=== PATIENT | male | born 1995 | race Caucasian/White ===

== ENCOUNTER 2018-09-05 23:07 | Inpatient (IN) | payer SELFPAY ==
[2018-09-06 00:09] LABS: ALT (SGPT) 22 U/L (8-55); AST (SGOT) 15 U/L (5-34); Albumin 4.3 g/dL (3.5-5.0); Alkaline Phosphatase 87 U/L (40-150); Anion Gap 12 mmol/L (10-20); BUN (Urea Nitrogen) 17 mg/dL (8.9-20.6); Bilirubin, Total 0.7 mg/dL (0.2-1.2); Calc. Creatinine Clearance 0 mL/min (70-130); Calcium 9.6 mg/dL (7.8-10.44); Carbon Dioxide 29 mmol/L (22-29); Chloride 103 mmol/L (98-107); Estimated GFR-MDRD 66; Glucose 103 mg/dL (70-105); Potassium 3.9 mmol/L (3.5-5.1); Protein, Total 7.3 g/dL (6.0-8.3); Sodium 140 mmol/L (136-145)
[2018-09-06 00:34] LABS: Band 1 % (5-11); Eosinophils 2 % (0-10); Hemoglobin 15.3 g/dL (14.0-18.0); Lymphocytes 61 % (21-51); MDiff Complete? YES; Mean Corpuscular HGB CONC 35.4 g/dL (32.0-36.0); Mean Corpuscular Hemoglobin 30.2 pg (27.0-31.0); Mean Corpuscular Volume 85.1 fL (78.0-98.0); Mean Platelet Volume 11.3 fL (7.4-10.4); Monocytes 15 % (0-10); Neutrophil 18 % (42-75); PLT Morphology Comment Appears Decreased; Platelet Count 35 thou/uL (130-400); RBC Distribution Width 12.1 % (11.5-14.5); Red Blood Cell (RBC) Count 5.07 mill/uL (4.70-6.10)
[2018-09-06 00:49] LABS: Bilirubin Negative (Negative); Blood, Urine Negative (Negative); Clarity CLEAR (Clear); Glucose, Urine (Dipstick) Negative (Negative); Leukocyte Negative (Negative); Nitrite Negative (Negative); Protein, Urine (Dipstick) Negative (Neg-Trace); Specific Gravity, Urine 1.017 (1.002-1.036); pH, Urine 6.5 (5.0-9.0)
[2018-09-06] MEDS ORDERED: Morphine 4 MG/ML VIAL ONE (01:13)
[2018-09-06] MEDS ORDERED: Ondansetron PF 4 MG/2 ML Vial ONE ×2 (01:13→12:34)
[2018-09-06] MEDS ORDERED: Piperacillin/Tazobactam 4.5 GM VIAL ONE (04:01)
[2018-09-06] MEDS ORDERED: Sodium Chloride 0.9% 100 ML ONE (04:01)
[2018-09-06 04:56] LABS: Hemoglobin 14.8 g/dL (14.0-18.0); Mean Corpuscular HGB CONC 36.6 g/dL (32.0-36.0); Mean Corpuscular Hemoglobin 31.3 pg (27.0-31.0); Mean Corpuscular Volume 85.6 fL (78.0-98.0); RBC Distribution Width 12.1 % (11.5-14.5); Red Blood Cell (RBC) Count 4.72 mill/uL (4.70-6.10); White Blood Cell (WBC) Count 1.8 thou/uL (4.8-10.8)
[2018-09-06 05:36] LABS: Band 8 % (5-11); Eosinophils 3 % (0-10); Large Platelets SLIGHT; Lymphocytes 57 % (21-51); MDiff Complete? YES; Mean Platelet Volume 11.3 fL (7.4-10.4); Monocytes 9 % (0-10); Neutrophil 16 % (42-75); PLT Morphology Comment Appears Decreased; Platelet Count 32 thou/uL (130-400); Reactive Lymphocytes 6 % (0-10)
[2018-09-06] MEDS ORDERED: Ondansetron ODT 4 MG TAB SL PRN (05:58)
[2018-09-06] MEDS ORDERED: Ondansetron PF 4 MG/2 ML Vial IVP PRN (05:58)
[2018-09-06] MEDS ORDERED: Morphine 4 MG/ML VIAL SLOW IVP PRN (05:59)
[2018-09-06] MEDS ORDERED: Lactated Ringer's 1,000 ML IV SCH (06:00)
[2018-09-06 06:38] VITALS: BMI 29.6
[2018-09-06] MEDS ORDERED: Piperacillin/Tazobactam 3.375 GM in Sodium Chloride 0.9% 100 ML IVPB SCH (12:00)
[2018-09-06] MEDS ORDERED: Bupivacaine/Epinephrine 0.25% 30 ML VIAL ONE (12:00)
[2018-09-06] MEDS ORDERED: Bupivacaine HCl 0.5%/Epinephrine 1:200,000/PF 30 ml Vial ONE (12:00)
--- NOTE | 2018-09-06 12:05 | HP ---
HISTORY OF PRESENT ILLNESS: Hitesh Hankins is a 23-year-old male, who works for the [employer]. He had an onset of pain in right lower quadrant yesterday, increased with movement without nausea, vomiting, or fevers. He presented to the emergency room. CAT scan verified appendicitis. White count was 1.8, hemoglobin 14.8, and platelet count was low at 35,000, this was repeated and it was 32,000. On 09/14/2014, platelet count was 187,000. The patient reports that there has been no medications or health problems known associated to this. He has not had any bleeding problems. He will often sustain small abrasions or lacerations, and has not noted prolonged bleeding. The patient did take azithromycin a month ago, small course, but otherwise he does not take any medications. ALLERGIES: NONE. SOCIAL HISTORY: Tobacco, none. Alcohol, none. MEDICATIONS: None. PAST SURGICAL HISTORY: Noncontributory. PAST MEDICAL HISTORY: Noncontributory. REVIEW OF SYSTEMS: Ten-point noncontributory. FAMILY HISTORY: Noncontributory. PHYSICAL EXAMINATION: VITAL SIGNS: Height 5 feet and 8 inches, weight 195 pounds, 29 BMI. LUNGS: Clear to auscultation. CARDIAC: Regular rate and rhythm without murmur or gallop. ABDOMEN: Soft. Tenderness in his right lower quadrant. Guarding to deep palpation. EXTREMITIES: Unremarkable. LABORATORY DATA: As above. ASSESSMENT AND PLAN: 1. Acute appendicitis. Recommend laparoscopic video appendectomy. Risks of infection, bleeding, visceral injury, and open procedure discussed. 2. Thrombocytopenia. Dr. Elida Weldon has been consulted. Platelet pack will be administered perioperatively. Await Dr. Weldon's workup. Job ID: [id number]
[2018-09-06] MEDS ORDERED: methylPREDNISolone Sod Succ/PF 125 MG/2 ML VIAL ONE ×2 (12:13→12:38)
[2018-09-06] MEDS ORDERED: Hydrocortisone Sod Succ/PF 100 mg/2 ml Vial ONE (12:32)
[2018-09-06] MEDS ORDERED: Succinylcholine Chloride 20 MG/ML 10 ml SYRINGE FS ONE (12:34)
[2018-09-06] MEDS ORDERED: Ketorolac Tromethamine 30 MG/ML VIAL ONE (12:34)
[2018-09-06] MEDS ORDERED: PROPOFOL 200 MG/20 ML VIAL ONE (12:34)
[2018-09-06] MEDS ORDERED: Lidocaine 1% PF 5 ML VIAL ONE (12:34)
--- NOTE | 2018-09-06 12:35 | CT ---
PRELIMINARY REPORT/[facility]/EMERGENCY AFTER HOURS PROCEDURE: EXAM: CT Abdomen and Pelvis With Contrast EXAM DATE/TIME: 09/06/2018 2:47 AM CLINICAL HISTORY: 23 years old, male; Pain; Abdominal pain; Generalized; Patient HX: 23m presents to ed C/O abd pain lo calized to the r side, which he noticed this morning after he woke up. Patient reports drinking energ y drinks and soda more than usual, but otherwise can't think of any reason for the intractable pain . Patient says using the restroom relieves pain temporarily. TECHNIQUE: Axial computed tomography images of the abdomen and pelvis with intravenous contrast. Coronal reforma tted images were created and reviewed. COMPARISON: No relevant prior studies available. FINDINGS: Lower thorax: No acute findings. ABDOMEN: Liver: Unremarkable. No mass. Gallbladder and bile ducts: Unremarkable. No calcified stones. No ductal dilation. Pancreas: Unremarkable. No ductal dilation. Spleen: The spleen is mildly enlarged. Adrenals: Unremarkable. No mass. Kidneys and ureters: No calculi. No hydronephrosis. Stomach and bowel: Duodenal diverticulum. Moderate stool within the distal large bowel. No obstructio n. Colonic diverticula most pronounced at the proximal large bowel. No discrete focally inflamed dive rticulum. Appendix: The appendix is mildly enlarged and minimally hyperemic measuring up to 10 mm in diameter. Infiltration of the surrounding fat. PELVIS: Bladder: Unremarkable as visualized. Reproductive: Unremarkable as visualized. ABDOMEN and PELVIS: Intraperitoneal space: No free air. No significant fluid collection. Bones/joints: No acute fracture. No dislocation. Soft tissues: Tiny fat containing umbilical hernia. Vasculature: Unremarkable. No abdominal aortic aneurysm. Lymph nodes: Enlarged left inguinal lymph nodes measuring up to 1.9 cm in short axis in left pelvic s idewall lymph node measuring up to 1.3 cm in short axis. IMPRESSION: 1. Findings suggestive of early acute appendicitis. Minimal surrounding inflammation. No discrete flu id collection or extraluminal gas foci. 2. Mild splenomegaly. Left external iliac and inguinal lymphadenopathy. The possibility of underlying malignancy is not excluded. 3. Other findings as above. THIS REPORT CONTAINS FINDINGS THAT MAY BE CRITICAL TO PATIENT CARE. The findings were verbally commun icated via telephone conference with FRANCI HOFFMAN at 3:14 AM [employer] on 09/06/2018. The findings were a cknowledged and understood. Thank you for allowing us to participate in the care of your patient. Dictated and Authenticated by: Ernie Grant MD 09/06/2018 3:18 AM Central Time ([place] & [place]) FINAL REPORT EMERGENT AFTER HOURS CT ABDOMEN AND PELVIS: IMPRESSION: Agree with the preliminary interpretation given by [facility]. POS: [facility]
[2018-09-06] MEDS ORDERED: Midazolam HCl 2 mg/2 ml Vial ONE (12:53)
[2018-09-06] MEDS ORDERED: Fentanyl 100 MCG/2 ML VIAL ONE ×2 (12:53→13:58)
[2018-09-06] MEDS ORDERED: Piperacillin/Tazobactam 3.375 GM VIAL ONE (12:53)
[2018-09-06] MEDS ORDERED: Iopamidol 370 76% 100 ML VIAL ONE (13:39)
[2018-09-06] MEDS ORDERED: Iopamidol 370 76% 50 ML VIAL FS ONE (13:39)
[2018-09-06] MEDS ORDERED: Promethazine HCl 25 MG/ML VIAL SLOW IVP PRN (13:49)
[2018-09-06] MEDS ORDERED: Ondansetron HCl/PF 4 MG/2 ML Vial IVP PRN (13:49)
[2018-09-06] MEDS ORDERED: Promethazine HCl 25 MG/ML VIAL IM PRN (13:49)
[2018-09-06] MEDS ORDERED: Ibuprofen 600 MG TAB PO PRN (14:17)
[2018-09-06] MEDS ORDERED: Acetaminophen 500 MG TAB PO PRN (14:17)
[2018-09-06] MEDS ORDERED: traMADol HCl 50 MG TAB PO PRN ×2 (14:17)
[2018-09-06 18:15] LABS: #Lymphocytes 0.4 thou/uL (1.20-3.40); #Monocytes 0.1 thou/uL (0.11-0.59); #Neutrophils 2.2 thou/uL (1.40-6.50); %Basophils 0.8 % (0.0-1.0); %Eosinophils 0.6 % (0.0-10.0); %Lymphocytes 12.9 % (21.0-51.0); %Neutrophils 81.7 % (42.0-75.0); Hemoglobin 14.8 g/dL (14.0-18.0); Mean Corpuscular HGB CONC 35.4 g/dL (32.0-36.0); Mean Corpuscular Hemoglobin 30.4 pg (27.0-31.0); Mean Platelet Volume 10.3 fL (7.4-10.4); Platelet Count 51 thou/uL (130-400); RBC Distribution Width 12.2 % (11.5-14.5); Red Blood Cell (RBC) Count 4.86 mill/uL (4.70-6.10); White Blood Cell (WBC) Count 2.7 thou/uL (4.8-10.8)
--- NOTE | 2018-09-06 19:36 | OP ---
DATE OF PROCEDURE: 09/06/2018 PREOPERATIVE DIAGNOSES: 1. Acute appendicitis. 2. Thrombocytopenia. POSTOPERATIVE DIAGNOSES: 1. Acute appendicitis. 2. Thrombocytopenia. PROCEDURES PERFORMED: Laparoscopic video appendectomy, preoperatively given Solu-Medrol dose, platelet pack, and antibiotics. ANESTHESIA: General, local 0.5% Marcaine with epinephrine. FINDINGS: Acute appendicitis. DESCRIPTION OF PROCEDURE: The patient was taken to the operating room, where under general anesthesia, Iglesias catheter was placed at the beginning of the procedure and removed at the end. Local anesthetic of 0.5% Marcaine with epinephrine was infiltrated in the skin and subcutaneous tissue at each port site. Infraumbilical incision was made. Pneumoperitoneum to 15 mmHg was obtained with a Veress needle, replaced with a 5 port, and the laparoscope inserted. A right lateral subcostal incision was made and a 5 port placed. A suprapubic incision was made and a 12 port placed. Appendix was acutely inflamed. Mesoappendix was taken down with the LigaSure. The stump of the appendix ligated with Endo blue load stapler. The stapled cecal stump was essentially hemostatic with clips placed for perfect hemostasis. Good hemostasis was noted. Irrigant and pneumoperitoneum evacuated. Appendix was submitted to Pathology. Suprapubic fascia was approximated with 0 Vicryl. Skin incisions were approximated with interrupted subdermal 4-0 Monocryl and [place] glue applied. Job ID: [id number]
[2018-09-07 03:42] VITALS: BP 106/63; TEMP 98.1
[2018-09-07 06:52] LABS: Hemoglobin 14.3 g/dL (14.0-18.0); Mean Corpuscular HGB CONC 35.8 g/dL (32.0-36.0); Mean Corpuscular Hemoglobin 30.8 pg (27.0-31.0); Mean Corpuscular Volume 86.1 fL (78.0-98.0); Mean Platelet Volume 9.9 fL (7.4-10.4); Platelet Count 71 thou/uL (130-400); Red Blood Cell (RBC) Count 4.66 mill/uL (4.70-6.10); White Blood Cell (WBC) Count 2.7 thou/uL (4.8-10.8)
[2018-09-07 07:30] LABS: Band 21 % (5-11); Eosinophils 1 % (0-10); Lymphocytes 26 % (21-51); MDiff Complete? YES; Monocytes 1 % (0-10); Neutrophil 37 % (42-75); PLT Morphology Comment Appears Decreased; Reactive Lymphocytes 14 % (0-10)
[2018-09-07 07:41] LABS: Band 23 % (5-11); Eosinophils 1 % (0-10); Hemoglobin 14.5 g/dL (14.0-18.0); Lymphocytes 21 % (21-51); MDiff Complete? YES; Mean Corpuscular HGB CONC 34.5 g/dL (32.0-36.0); Mean Corpuscular Hemoglobin 29.6 pg (27.0-31.0); Mean Corpuscular Volume 85.9 fL (78.0-98.0); Mean Platelet Volume 10.2 fL (7.4-10.4); Monocytes 1 % (0-10); Neutrophil 35 % (42-75); PLT Morphology Comment Appears Decreased; Platelet Count 78 thou/uL (130-400); Reactive Lymphocytes 19 % (0-10); Red Blood Cell (RBC) Count 4.91 mill/uL (4.70-6.10)
--- NOTE | 2018-09-07 14:14 | CON ---
DATE OF CONSULTATION: 09/07/2018 HISTORY OF PRESENT ILLNESS: Mr. Hankins is a 23-year-old male, who presented yesterday with appendicitis. He had acute onset abdominal pain and was evaluated quickly by Surgery. At the time of admission, he was noted to be leukopenic and thrombocytopenic. The patient denies any history of this in the past. He has normal CBC from few years ago. His platelet count was low at 35,000 and it was repeated at 32,000. He denies any recent fever or chills besides the 24 hours prior to hospitalization when he had nausea and vomiting and acute onset of fever associated with the appendicitis. He did take some high-dose antibiotics for an STD about 3 weeks ago, but has not noticed any bleeding or bruising. He denies nosebleeds or blood in his stool or urine. He has not had any easy bruising. He denies any other recent infections. His is currently in labor and is supposed to deliver baby within 24 hours. He is quite interested in being discharged, so that he can go and spent time with his . PAST MEDICAL HISTORY: Negative. CURRENT MEDICATIONS: 1. Tylenol p.r.n. 2. Motrin p.r.n. 3. Ultram p.r.n. ALLERGIES: NO KNOWN DRUG ALLERGIES. 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 He denies anything other than occasional alcohol use. He denies tobacco use. FAMILY HISTORY: Negative for hematology. REVIEW OF SYSTEMS: Otherwise, 10-point review of systems is negative with the exception of abdominal pain, which is resolving and he is ambulating without incident today. PHYSICAL EXAMINATION: VITAL SIGNS: Temperature 98.1, respirations 18, pulse 71, O2 saturation 96% on room air, blood pressure 106/63. GENERAL: He is up walking around the room, in no acute distress. HEENT: Extraocular muscles are intact. Pupils are equal, round, and reactive to light. He has no oral cavity lesions. NECK: Supple without lymphadenopathy. CARDIOVASCULAR: Regular rhythm. LUNGS: Clear to auscultation. ABDOMEN: Hypoactive bowel sounds. Soft and somewhat tender postoperatively. EXTREMITIES: No edema and no ecchymosis. LABORATORY DATA: White blood cell count on admission 2.0 repeated today 3.0, hemoglobin 15.3 now 14.5, platelets 35,000, he did get transfusion and now they are up to 78,000, neutrophils 18%, bands 1%, monocytes 15%, lymphocytes 61% on admission. His differential 24 hours later is 35% neutrophils, 23% bands, 21% lymphocytes, and 19% reactive lymphocytes. ASSESSMENT: Mr. Hankins is a 23-year-old male with: 1. Leukopenia and thrombocytopenia, improving and asymptomatic. 2. Appendicitis, status post appendectomy. PLAN: 1. We will review the peripheral smear. 2. His numbers are improving and he would like to be discharged. He seems clinically stable and we can follow up with him within 3 to 4 days as an outpatient with the repeat CBC. 3. Further workup may be warranted as an outpatient. Job ID: [id number]
--- NOTE | 2018-09-09 15:02 | EKG ---
Test Reason : Blood Pressure : / mmHG Vent. Rate : 070 BPM Atrial Rate : 070 BPM P-R Int : 120 ms QRS Dur : 114 ms QT Int : 424 ms P-R-T Axes : 049 035 048 degrees QTc Int : 457 ms Normal sinus rhythm Normal ECG Confirmed by FRANCI INTERIANO M.D. ([id number]), online editor DYLAN BARNETT ([id number]) on 09/09/2018 3:01:59 PM Referred By: Confirmed By:FRANCI INTERIANO M.D.
== END 2018-09-07 08:35 | disposition home or self-care (01) | DRG 343 ==
LOC: ERS 23:07 → SURG A 09-06 04:20
PROVIDERS: ADMIT Specialist; ATTEND Specialist
PROC: 0DTJ4ZZ Resection of Appendix, Percutaneous Endoscopic Approach (ICD-10-PCS; principal; 2018-09-06)
DX: K35.80 Unspecified acute appendicitis (principal); D69.6 Thrombocytopenia, unspecified
CPT/HCPCS: 36415; 36430; 74177; 80053; 81003; 83690; 85025; 86850; 86870; 86900; 86901; 88304; 93005; 96361; 96365; 96375; J0670; J1720; J1885; J2001; J2250; J2270; J2405; J2543; J2704; J2930; J3010; J7050; P9035

== ENCOUNTER 2018-10-20 08:41 | Day surgery (SDC) | payer OTHER, SELFPAY ==
[2018-10-19 11:57] VITALS: BMI 30.1
[~2018-10-20 08:41] MED LIST: Prevnar 13-Val Conj/PF 0.5 ML SYRINGE IM ONE
[2018-10-20 09:04] LABS: INR-International Normal Ratio 1.1; PTT 29.5 SEC (22.9-36.1); Prothrombin Time 14.1 SEC (12.0-14.7)
[2018-10-20 09:13] LABS: Hemoglobin 15.4 g/dL (14.0-18.0); Mean Corpuscular Hemoglobin 30.1 pg (27.0-31.0); Mean Platelet Volume 11.6 fL (7.4-10.4); Platelet Count 22 thou/uL (130-400); Red Blood Cell (RBC) Count 5.12 mill/uL (4.70-6.10); White Blood Cell (WBC) Count 1.8 thou/uL (4.8-10.8)
[2018-10-20 09:52] LABS: Band 3 % (5-11); Eosinophils 2 % (0-10); Lymphocytes 54 % (21-51); MDiff Complete? YES; Monocytes 13 % (0-10); Neutrophil 23 % (42-75); Platelet Morphology Comment Appears Decreased; RBC Morphology Normal; Reactive Lymphocytes 5 % (0-10)
[2018-10-20] MEDS ORDERED: Fentanyl 100 MCG/2 ML VIAL ONE ×2 (10:15→10:16)
[2018-10-20] MEDS ORDERED: Sodium Bicarbonate 2.5 MEQ/5 ML VIAL ONE (10:17)
[2018-10-20] MEDS ORDERED: Midazolam HCl 2 mg/2 ml Vial ONE (10:17)
--- NOTE | 2018-10-20 12:53 | CT ---
RIGHT ILIAC BONE MARROW ASPIRATION AND BONE BIOPSY: HISTORY: Patient with thrombocytopenia, D69.49. FINDINGS: The patient's low platelet count was discussed with Dr. Weldon prior to exam. This benefit analysis would suggest that in order to obtain a diagnosis it is worse possible risk of bleeding in performin g this procedure. The right iliac crest was localized using CT guidance. The overlying skin was prepped and draped in the usual sterile manner. A % Lidocaine solution was used to anesthetize the overlying the soft tiss ues. A Jamshidi needle was placed into the right iliac crest. Bone marrow aspiration was obtained. The specimen was sent to pathology. A core biopsy was attempted. No significant amount of bone returned. A 2nd bone marrow biopsy was, therefore, performed. Specimen given to pathology. IMPRESSION: Successful right iliac bone marrow aspiration and core biopsy. Post procedure no definite significan t evidence of hematoma seen. CODE CR POS: [facility]
== END 2018-10-20 12:15 | disposition home or self-care (01) ==
LOC: CT 08:41
PROVIDERS: ATTEND Radiology Neuroradiology
PROC: 07DR3ZX Extraction of Iliac Bone Marrow, Percutaneous Approach, Diagnostic (ICD-10-PCS; principal; 2018-10-20)
DX: D69.6 Thrombocytopenia, unspecified (principal); Z87.891 Personal history of nicotine dependence; Z90.49 Acquired absence of other specified parts of digestive tract
CPT/HCPCS: 20225; 36415; 77012; 85025; 85097; 85610; 85730; 88184; 88237; 88305; 88311; 88313; J2250; J3010

== ENCOUNTER 2019-02-15 10:23 | Emergency (ER) | payer OTHER, SELFPAY | END 2019-02-15 11:53 | disposition home or self-care (01) | LOC: ERS 10:23 | DX: J06.9 Acute upper respiratory infection, unspecified (principal); F17.290 Nicotine dependence, other tobacco product, uncomplicated | CPT/HCPCS: 99283 ==

== ENCOUNTER 2019-08-05 12:17 | Emergency (ER) | payer SELFPAY ==
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
[2019-08-05 14:35] LABS: Hemoglobin 12.3 g/dL (14.0-18.0); Mean Corpuscular HGB CONC 35.1 g/dL (32.0-36.0); Mean Corpuscular Hemoglobin 30.4 pg (27.0-31.0); Mean Corpuscular Volume 86.8 fL (78.0-98.0); Mean Platelet Volume 9.5 fL (7.4-10.4); Platelet Count 85 thou/uL (130-400); RBC Distribution Width 12.4 % (11.5-14.5); Red Blood Cell (RBC) Count 4.04 mill/uL (4.70-6.10); White Blood Cell (WBC) Count 1.2 thou/uL (4.8-10.8)
[2019-08-05 15:00] LABS: ALT (SGPT) 16 U/L (8-55); AST (SGOT) 15 U/L (5-34); Albumin 4.6 g/dL (3.5-5.0); Alkaline Phosphatase 69 U/L (40-110); Anion Gap 13 mmol/L (10-20); BUN (Urea Nitrogen) 14 mg/dL (8.9-20.6); Calc. Creatinine Clearance 0 mL/min (70-130); Calcium 9.7 mg/dL (7.8-10.44); Carbon Dioxide 27 mmol/L (22-29); Chloride 104 mmol/L (98-107); Estimated GFR-MDRD 64; Globulin 2.8 g/dL (2.4-3.5); Glucose 86 mg/dL (70-105); Potassium 3.9 mmol/L (3.5-5.1); Protein, Total 7.4 g/dL (6.0-8.3); Sodium 140 mmol/L (136-145)
[2019-08-05 15:05] LABS: Band 9 % (5-11); Eosinophils 4 % (0-10); Lymphocytes 50 % (21-51); MDiff Complete? YES; Metamyelocyte 2 % (0-0); Monocytes 20 % (0-10); Myelocyte 2 % (0-0); Neutrophil 5 % (42-75); Ovalocytes SLIGHT = 2-5 cells (100X) (0-1/hpf); Platelet Morphology Comment Appears Decreased; Polychromasia MODERATE = 3-4 cells (100X) (0-2/hpf); Reactive Lymphocytes 9 % (0-10); Reflex for Review?? YES; Tear Drops SLIGHT = 2-5 cells (100X) (0-1/hpf)
[2019-08-05] MEDS ORDERED: diphenhydrAMINE 50 MG/ML VIAL ONE (16:00)
[2019-08-05] MEDS ORDERED: Ketorolac Tromethamine 30 MG/ML VIAL ONE (16:00)
[2019-08-05] MEDS ORDERED: Acetaminophen 500 MG TAB ONE (16:00)
[2019-08-05] MEDS ORDERED: Metoclopramide HCl 10 MG/2 ML VIAL ONE (16:00)
== END 2019-08-05 17:04 | disposition home or self-care (01) ==
LOC: ERS 12:17
DX: D69.6 Thrombocytopenia, unspecified (principal); R55 Syncope and collapse; F17.290 Nicotine dependence, other tobacco product, uncomplicated
CPT/HCPCS: 71045; 80053; 84484; 85025; 85060; 93005; 96361; 96365; 96375; J1200; J1885; J2765

== ENCOUNTER 2019-09-14 16:28 | Inpatient (IN) | payer OTHER, SELFPAY ==
[~2019-09-14 16:28] MED LIST changes: +Dexamethasone 20 MG/5 ML VIAL ONE; +Iopamidol-370 76% 500 ML 1 ML ONE; +Lidocaine 1% PF 5 ML VIAL ONE; +Ondansetron PF 4 MG/2 ML Vial ONE; +PHENYLEPHRINE-NS 100 MCG/ML 10 ML SYRINGE ONE; +PROPOFOL 200 MG/20 ML VIAL ONE; -Prevnar 13-Val Conj/PF 0.5 ML SYRINGE IM ONE; +Succinylcholine Chloride 20 MG/ML 10 ml SYRINGE FS ONE
[2019-09-14] MEDS ORDERED: Fentanyl 100 MCG/2 ML VIAL ONE ×5 (16:33→21:48)
[2019-09-14] MEDS ORDERED: Ondansetron PF 4 MG/2 ML Vial ONE (16:33)
[2019-09-14] MEDS ORDERED: HYDROmorphone 0.5 MG/0.5 ML SYRINGE ONE ×2 (16:39→16:51)
[2019-09-14] MEDS ORDERED: Adacel (T-DAP) 0.5 ML SYRINGE ONE ×2 (16:40→16:46)
[2019-09-14] MEDS ORDERED: Hydrocortisone Sod Succ/PF 100 mg/2 ml Vial ONE (16:48)
[2019-09-14 17:08] LABS: #Eosinphils 0.1 thou/uL (0.0-0.7); #Monocytes 0.4 thou/uL (0.11-0.59); #Neutrophils 9.4 thou/uL (1.40-6.50); %Eosinophils 0.5 % (0.0-10.0); %Lymphocytes 9.3 % (21.0-51.0); %Neutrophils 86.2 % (42.0-75.0); Hemoglobin 15.6 g/dL (14.0-18.0); Mean Corpuscular HGB CONC 34.9 g/dL (32.0-36.0); Mean Corpuscular Hemoglobin 31.1 pg (27.0-31.0); Mean Corpuscular Volume 89.2 fL (78.0-98.0); Mean Platelet Volume 10.3 fL (7.4-10.4); Platelet Count 104 thou/uL (130-400); RBC Distribution Width 12.9 % (11.5-14.5); Red Blood Cell (RBC) Count 5.02 mill/uL (4.70-6.10); White Blood Cell (WBC) Count 10.9 thou/uL (4.8-10.8)
[2019-09-14 17:14] LABS: Prothrombin Time 13.5 SEC (12.0-14.7)
[2019-09-14 17:18] LABS: PTT 19.7 SEC (22.9-36.1)
[2019-09-14 17:20] LABS: Bacteria/HPF None Seen HPF (None Seen); Bilirubin Negative (Negative); Blood, Urine 1+ (Negative); Clarity Clear (Clear); Glucose, Urine (Dipstick) 50 mg/dL (Negative); Leukocyte Negative Leu/uL (Negative); Nitrite Negative (Negative); Protein, Urine (Dipstick) Negative (Neg-Trace); RBC/HPF 21-50 HPF (0-3); Squamous Epithelial None Seen HPF (0-3); Urobilinogen Normal mg/dL (Less than 2); WBC/HPF 0-3 HPF (0-3)
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
--- NOTE | 2019-09-14 17:33 | CT ---
CT head without contrast: Multiple axial tomograms obtained through the head without IV enhancement. INDICATIONS: Headache COMPARISON: None FINDINGS: Ventricles have normal size and position. No evidence of intracranial mass, hemorrhage, edema, or infarct. Visualized sinuses and mastoids appear clear. Bony calvarium appears unremarkable. IMPRESSION: No acute finding
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
[2019-09-14 17:41] LABS: ALT (SGPT) 34 U/L (8-55); AST (SGOT) 28 U/L (5-34); Albumin 4.4 g/dL (3.5-5.0); Alkaline Phosphatase 58 U/L (40-110); Anion Gap 20 mmol/L (10-20); BUN (Urea Nitrogen) 19 mg/dL (8.9-20.6); Bilirubin, Total 1.1 mg/dL (0.2-1.2); Calc. Creatinine Clearance 0 mL/min (70-130); Calcium 9.4 mg/dL (7.8-10.44); Carbon Dioxide 22 mmol/L (22-29); Chloride 103 mmol/L (98-107); Estimated GFR-MDRD 64; Globulin 2.4 g/dL (2.4-3.5); Glucose 153 mg/dL (70-105); Lipase 38 U/L (8-78); Potassium 4.4 mmol/L (3.5-5.1); Protein, Total 6.8 g/dL (6.0-8.3); Sodium 141 mmol/L (136-145)
[2019-09-14] MEDS ORDERED: Ondansetron ODT 4 MG TAB PO PRN (17:51)
[2019-09-14] MEDS ORDERED: Dextrose 5% in Water 1,000 ML IV PRN (17:51)
[2019-09-14] MEDS ORDERED: Morphine 4 MG/ML VIAL SLOW IVP PRN (17:51)
[2019-09-14] MEDS ORDERED: Ondansetron PF 4 MG/2 ML Vial IVP PRN (17:51)
[2019-09-14] MEDS ORDERED: hydrALAZINE 20 MG/ML VIAL SLOW IVP PRN (17:51)
[2019-09-14] MEDS ORDERED: Dextrose 50% Abboject 50 ML SYRINGE SLOW IVP PRN (17:51)
[2019-09-14] MEDS ORDERED: Neomycin-Polymyxin 1 ML AMP ONE (18:16)
[2019-09-14] MEDS ORDERED: Ibuprofen 600 MG TAB PO SCH (18:30)
[2019-09-14] MEDS ORDERED: traMADol HCl 50 MG TAB PO SCH (18:30)
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
[2019-09-14] MEDS ORDERED: HYDROmorphone 2 MG/ML VIAL ONE (19:34)
[2019-09-14 19:58] LABS: Amphetamine Not Detected (NotDetected); Benzodiazepine Screen Not Detected (NotDetected); Cocaine Metabolite Screen Not Detected (NotDetected); Medtox Reader # READER 1; Methamphetamine Not Detected (NotDetected); Opiate Screen Not Detected (NotDetected); Phencyclidine (PCP) Not Detected (NotDetected); THC/Cannabinoid Screen Not Detected (NotDetected)
[2019-09-14 19:59] LABS: Barbiturates Screen Not Detected (NotDetected); Medtox Control Line Valid? VALID (VALID); Methadone Not Detected (NotDetected); Oxycodone Screen Not Detected (NotDetected); Tricyclic Screen Not Detected (NotDetected)
[2019-09-14] MEDS ORDERED: Albumin 25% 100 ML ONE (20:04)
[2019-09-14] MEDS ORDERED: Albumin 5% 500 ML ONE (20:04)
[2019-09-14] MEDS ORDERED: Morphine Sulfate 2 MG/ML SYRINGE SLOW IVP PRN (20:53)
[2019-09-14] MEDS ORDERED: Ondansetron HCl/PF 4 MG/2 ML Vial IVP PRN (20:53)
[2019-09-14] MEDS ORDERED: Promethazine HCl 25 MG/ML VIAL SLOW IVP PRN (20:53)
[2019-09-14] MEDS ORDERED: HYDROmorphone 2 MG/ML VIAL SLOW IVP PRN (20:53)
[2019-09-14] MEDS ORDERED: Promethazine HCl 25 MG/ML VIAL IM PRN (20:53)
[2019-09-14] MEDS ORDERED: Ketorolac Tromethamine 30 MG/ML VIAL IVP PRN (20:53)
[2019-09-14] MEDS ORDERED: PACU-Morphine 4MG/ML VIAL SLOW IVP PRN (20:53)
[2019-09-14] MEDS ORDERED: Meperidine HCl/PF 25 MG/ML VIAL SLOW IVP PRN ×2 (20:53)
[2019-09-14] MEDS: Famotidine/PF 20 mg/2ml Vial SLOW IVP SCH (22:30)
[2019-09-14] MEDS: Gabapentin 300 MG CAP PO SCH (22:30)
[2019-09-14] MEDS: Sodium Chloride 0.9% 1,000 ML IV SCH (22:31)
[2019-09-14] MEDS: CEFAZOLIN 2 GM in Premix Bag 1 BAG IVPB SCH (22:38)
[2019-09-14] MEDS: Silver Sulfadiazine 1% Cream 50 GM JAR TOP SCH (22:45)
[2019-09-14] MEDS: Morphine 4 MG/ML VIAL SLOW IVP PRN (23:15)
[2019-09-14] MEDS: Acetaminophen 1,000 MG in Premix Bag 1 BAG IVPB SCH (23:16)
[2019-09-14 23:39] LABS: Lactic Acid 2.8 mmol/L (0.5-2.2)
[2019-09-15 00:52] VITALS: BMI 34.9
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
[2019-09-15] MEDS: Morphine 4 MG/ML VIAL SLOW IVP PRN (02:14)
[2019-09-15] MEDS: Sodium Chloride 0.9% 1,000 ML IV SCH (02:15)
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
[2019-09-15 05:00] LABS: #Lymphocytes 0.4 thou/uL (1.20-3.40); #Neutrophils 7.7 thou/uL (1.40-6.50); %Basophils 0.2 % (0.0-1.0); %Eosinophils 0.1 % (0.0-10.0); %Lymphocytes 4.9 % (21.0-51.0); %Monocytes 10.7 % (0.0-10.0); %Neutrophils 84.2 % (42.0-75.0); Hemoglobin 10.6 g/dL (14.0-18.0); Mean Corpuscular HGB CONC 35.3 g/dL (32.0-36.0); Mean Corpuscular Hemoglobin 31.5 pg (27.0-31.0); Mean Corpuscular Volume 89.3 fL (78.0-98.0); Mean Platelet Volume 9.6 fL (7.4-10.4); Platelet Count 76 thou/uL (130-400); RBC Distribution Width 12.8 % (11.5-14.5); Red Blood Cell (RBC) Count 3.35 mill/uL (4.70-6.10); White Blood Cell (WBC) Count 9.1 thou/uL (4.8-10.8)
[2019-09-15 05:16] LABS: Anion Gap 15 mmol/L (10-20); BUN (Urea Nitrogen) 20 mg/dL (8.9-20.6); Calc. Creatinine Clearance 140 mL/min (70-130); Calcium 9.3 mg/dL (7.8-10.44); Carbon Dioxide 25 mmol/L (22-29); Chloride 102 mmol/L (98-107); Estimated GFR-MDRD 74; Glucose 150 mg/dL (70-105); Magnesium 1.9 mg/dL (1.6-2.6); Potassium 4.6 mmol/L (3.5-5.1); Sodium 137 mmol/L (136-145)
[2019-09-15 05:17] LABS: CK (CPK) 600 U/L (30-200); Phosphorus 5.2 mg/dL (2.3-4.7)
[2019-09-15] MEDS: traMADol HCl 50 MG TAB PO SCH ×4 (05:20→23:42)
[2019-09-15] MEDS: Acetaminophen 1,000 MG in Premix Bag 1 BAG IVPB SCH (05:21)
[2019-09-15] MEDS: CEFAZOLIN 2 GM in Premix Bag 1 BAG IVPB SCH ×3 (05:24→21:00)
--- NOTE | 2019-09-15 07:36 | RAD ---
XR Tib Fib Lt Leg 2 View History: ORIF Comparison: Leg radiograph same day Findings: 4 fluoroscopic images were obtained from the operating room. Impression: Fluoroscopy for surgical purposes. Pin placement likely for an external fixator.
[2019-09-15 08:19] LABS: Hemoglobin A1c 4.4 % (4.0-6.0)
[2019-09-15] MEDS ORDERED: Dextrose 50% Abboject 50 ML SYRINGE IVP PRN (08:26)
[2019-09-15] MEDS ORDERED: Dextrose 5% in Water 1,000 ML IV PRN (08:26)
[2019-09-15] MEDS ORDERED: HumaLOG 300 UNITS/3 ML VIAL SC PRN (08:26)
[2019-09-15] MEDS: Scopolamine 1.5 mg/72 hour Patch TD SCH (08:28)
[2019-09-15] MEDS: Gabapentin 300 MG CAP PO SCH ×3 (08:29→21:00)
[2019-09-15] MEDS: predniSONE 20 MG TAB PO SCH (08:29)
[2019-09-15] MEDS: Famotidine/PF 20 mg/2ml Vial SLOW IVP SCH (08:29)
[2019-09-15] MEDS: Polyethylene Glycol 3350 17 GM Packet PO SCH (08:30)
[2019-09-15] MEDS: Silver Sulfadiazine 1% Cream 50 GM JAR TOP SCH ×2 (08:30→21:00)
[2019-09-15] MEDS ORDERED: Acetaminophen 500 MG TAB PO PRN (08:59)
[2019-09-15] MEDS ORDERED: FLU VACC QS2019-20(6MOS UP)/PF 60 MCG/0.5 ML SYRINGE IM ONE (09:00)
[2019-09-15] MEDS ORDERED: Enoxaparin Sodium 40 MG/0.4 ML SYRINGE SC SCH (09:00)
[2019-09-15] MEDS: Cyclobenzaprine 10 MG TAB PO PRN (09:58)
[2019-09-15] MEDS: Acetaminophen 500 MG TAB PO SCH ×2 (18:03→23:42)
[2019-09-15 18:15] LABS: #Lymphocytes 0.6 thou/uL (1.20-3.40); #Monocytes 0.7 thou/uL (0.11-0.59); #Neutrophils 6.8 thou/uL (1.40-6.50); %Basophils 0.1 % (0.0-1.0); %Eosinophils 0.3 % (0.0-10.0); %Lymphocytes 6.8 % (21.0-51.0); %Monocytes 9.1 % (0.0-10.0); %Neutrophils 83.8 % (42.0-75.0); Hemoglobin 10.7 g/dL (14.0-18.0); Mean Corpuscular HGB CONC 35.4 g/dL (32.0-36.0); Mean Corpuscular Hemoglobin 31.9 pg (27.0-31.0); Mean Platelet Volume 9.9 fL (7.4-10.4); Platelet Count 97 thou/uL (130-400); RBC Distribution Width 12.9 % (11.5-14.5); Red Blood Cell (RBC) Count 3.36 mill/uL (4.70-6.10); White Blood Cell (WBC) Count 8.1 thou/uL (4.8-10.8)
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
[2019-09-16 00:14] LABS: #Lymphocytes 0.8 thou/uL (1.20-3.40); #Monocytes 0.6 thou/uL (0.11-0.59); #Neutrophils 4.4 thou/uL (1.40-6.50); %Basophils 0.1 % (0.0-1.0); %Eosinophils 0.5 % (0.0-10.0); %Lymphocytes 13.7 % (21.0-51.0); %Monocytes 9.7 % (0.0-10.0); %Neutrophils 76.1 % (42.0-75.0); Hemoglobin 9.9 g/dL (14.0-18.0); Mean Corpuscular HGB CONC 35.3 g/dL (32.0-36.0); Mean Corpuscular Hemoglobin 31.8 pg (27.0-31.0); Mean Corpuscular Volume 90.2 fL (78.0-98.0); Mean Platelet Volume 9.1 fL (7.4-10.4); Platelet Count 88 thou/uL (130-400); RBC Distribution Width 12.9 % (11.5-14.5); Red Blood Cell (RBC) Count 3.11 mill/uL (4.70-6.10); White Blood Cell (WBC) Count 5.8 thou/uL (4.8-10.8)
[2019-09-16 00:21] LABS: INR-International Normal Ratio 1.1; Prothrombin Time 13.9 SEC (12.0-14.7)
[2019-09-16 00:36] LABS: Anion Gap 14 mmol/L (10-20); BUN (Urea Nitrogen) 20 mg/dL (8.9-20.6); Calc. Creatinine Clearance 132 mL/min (70-130); Calcium 8.5 mg/dL (7.8-10.44); Carbon Dioxide 25 mmol/L (22-29); Chloride 104 mmol/L (98-107); Estimated GFR-MDRD 70; Glucose 222 mg/dL (70-105); Phosphorus 3.1 mg/dL (2.3-4.7); Potassium 3.7 mmol/L (3.5-5.1); Sodium 139 mmol/L (136-145)
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
[2019-09-16] MEDS: Cyclobenzaprine 10 MG TAB PO PRN ×2 (03:56→23:30)
[2019-09-16] MEDS ORDERED: Morphine 4 MG/ML VIAL SLOW IVP SCH (04:30)
[2019-09-16] MEDS: traMADol HCl 50 MG TAB PO SCH ×4 (05:24→23:29)
[2019-09-16] MEDS: CEFAZOLIN 2 GM in Premix Bag 1 BAG IVPB SCH ×3 (05:25→21:18)
[2019-09-16] MEDS: Acetaminophen 500 MG TAB PO SCH ×4 (05:25→23:29)
[2019-09-16] MEDS ORDERED: CEFAZOLIN 2 GM in Premix Bag 1 BAG IVPB SCH (07:45)
[2019-09-16] MEDS: predniSONE 20 MG TAB PO SCH (08:30)
[2019-09-16] MEDS: Gabapentin 300 MG CAP PO SCH ×3 (08:30→21:18)
[2019-09-16] MEDS: Polyethylene Glycol 3350 17 GM Packet PO SCH (08:31)
[2019-09-16] MEDS: Silver Sulfadiazine 1% Cream 50 GM JAR TOP SCH ×2 (08:31→21:19)
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
[2019-09-16 17:30] LABS: Hemoglobin 10.8 g/dL (14.0-18.0)
[2019-09-16] MEDS: Enoxaparin Sodium 40 MG/0.4 ML SYRINGE SC SCH (21:18)
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
[2019-09-17] MEDS: Acetaminophen 500 MG TAB PO SCH ×3 (05:20→18:13)
[2019-09-17] MEDS: traMADol HCl 50 MG TAB PO SCH ×3 (05:21→18:09)
[2019-09-17 06:02] LABS: Phosphorus 3.9 mg/dL (2.3-4.7)
[2019-09-17 06:04] LABS: Anion Gap 10 mmol/L (10-20); BUN (Urea Nitrogen) 21 mg/dL (8.9-20.6); Calc. Creatinine Clearance 179 mL/min (70-130); Calcium 9.1 mg/dL (7.8-10.44); Carbon Dioxide 31 mmol/L (22-29); Chloride 102 mmol/L (98-107); Estimated GFR-MDRD Greater than 90; Glucose 92 mg/dL (70-105); Magnesium 2.1 mg/dL (1.6-2.6); Sodium 139 mmol/L (136-145)
[2019-09-17 06:36] LABS: Mean Corpuscular HGB CONC 33.8 g/dL (32.0-36.0); Mean Corpuscular Hemoglobin 30.4 pg (27.0-31.0); Mean Corpuscular Volume 89.8 fL (78.0-98.0); Mean Platelet Volume 9.7 fL (7.4-10.4); Platelet Count 70 thou/uL (130-400); RBC Distribution Width 13.5 % (11.5-14.5); Red Blood Cell (RBC) Count 3.31 mill/uL (4.70-6.10); White Blood Cell (WBC) Count 4.4 thou/uL (4.8-10.8)
[2019-09-17] MEDS: Cyclobenzaprine 10 MG TAB PO PRN ×2 (07:48→19:25)
[2019-09-17 08:29] LABS: Band 10 % (5-11); Eosinophils 2 % (0-10); Lymphocytes 17 % (21-51); MDiff Complete? YES; Monocytes 16 % (0-10); Myelocyte 1 % (0-0); Neutrophil 53 % (42-75); Platelet Morphology Comment Appears Decreased; Polychromasia SLIGHT = 2-3 cells (100X) (0-2/hpf); Promyelocytes 1 % (0-0)
[2019-09-17] MEDS: Sodium Chloride 0.9% 1,000 ML IV SCH ×2 (09:29→18:09)
[2019-09-17] MEDS: Gabapentin 300 MG CAP PO SCH ×3 (09:30→19:25)
[2019-09-17] MEDS: predniSONE 20 MG TAB PO SCH (09:30)
[2019-09-17] MEDS: Polyethylene Glycol 3350 17 GM Packet PO SCH (09:32)
[2019-09-17] MEDS: Silver Sulfadiazine 1% Cream 50 GM JAR TOP SCH ×2 (09:32→19:40)
[2019-09-17] MEDS ORDERED: Ondansetron PF 4 MG/2 ML Vial ONE (09:48)
[2019-09-17] MEDS ORDERED: Lidocaine 1% PF 5 ML VIAL ONE (09:48)
[2019-09-17] MEDS ORDERED: PROPOFOL 200 MG/20 ML VIAL ONE (09:48)
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
[2019-09-17] MEDS ORDERED: Fentanyl 100 MCG/2 ML VIAL ONE ×4 (14:08→17:19)
[2019-09-17] MEDS ORDERED: Ondansetron HCl/PF 4 MG/2 ML Vial IVP PRN (15:05)
[2019-09-17] MEDS ORDERED: Promethazine HCl 25 MG/ML VIAL IM PRN (15:05)
[2019-09-17] MEDS ORDERED: Promethazine HCl 25 MG/ML VIAL SLOW IVP PRN (15:05)
[2019-09-17] MEDS ORDERED: Labetalol HCl 100 MG/20 ML VIAL ONE (17:04)
[2019-09-17] MEDS ORDERED: Morphine 4 MG/ML VIAL SLOW IVP PRN (18:22)
[2019-09-17] MEDS ORDERED: HYDROcodone/Acetaminophen 5/325 mg Tablet PO PRN ×3 (18:22→19:21)
[2019-09-17] MEDS: Enoxaparin Sodium 40 MG/0.4 ML SYRINGE SC SCH (20:30)
[2019-09-17] MEDS ORDERED: HYDROcodone/Acetaminophen 7.5/325 mg Tablet PO PRN (20:37)
[2019-09-17] MEDS ORDERED: Morphine 4 MG/ML VIAL SLOW IVP SCH (20:45)
[2019-09-17] MEDS ORDERED: Acetaminophen 325 MG TAB PO SCH (21:00)
--- NOTE | 2019-09-17 21:33 | RAD ---
LEFT TIBIA AND FIBULA TWO VIEWS: 09/17/19 HISTORY: Intraoperative films. These show intramedullary china placement related to fixation of a comminuted fracture of the mid shaft of the tibia. IMPRESSION: Placement of intramedullary china stabilizing tibial fracture. POS: AUBREE
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
[2019-09-18] MEDS: CEFAZOLIN 2 GM in Premix Bag 1 BAG IVPB SCH ×3 (02:36→15:29)
[2019-09-18] MEDS: Sodium Chloride 0.9% 1,000 ML IV SCH ×2 (02:36→08:28)
[2019-09-18] MEDS: Cyclobenzaprine 10 MG TAB PO PRN ×2 (02:36→13:39)
[2019-09-18] MEDS: Acetaminophen 325 MG TAB PO SCH ×4 (02:44→21:26)
[2019-09-18] MEDS: HYDROcodone/Acetaminophen 7.5/325 mg Tablet PO PRN (05:39)
[2019-09-18 05:47] LABS: Phosphorus 4.1 mg/dL (2.3-4.7)
[2019-09-18 05:49] LABS: Anion Gap 9 mmol/L (10-20); BUN (Urea Nitrogen) 22 mg/dL (8.9-20.6); Calc. Creatinine Clearance 138 mL/min (70-130); Calcium 8.7 mg/dL (7.8-10.44); Carbon Dioxide 34 mmol/L (22-29); Chloride 101 mmol/L (98-107); Estimated GFR-MDRD 73; Glucose 90 mg/dL (70-105); Magnesium 2.1 mg/dL (1.6-2.6); Potassium 4.3 mmol/L (3.5-5.1); Sodium 140 mmol/L (136-145)
[2019-09-18 06:21] LABS: Hemoglobin 9.2 g/dL (14.0-18.0); Mean Corpuscular HGB CONC 34.5 g/dL (32.0-36.0); Mean Corpuscular Hemoglobin 31.2 pg (27.0-31.0); Mean Corpuscular Volume 90.3 fL (78.0-98.0); Platelet Count 64 thou/uL (130-400); RBC Distribution Width 13.4 % (11.5-14.5); Red Blood Cell (RBC) Count 2.96 mill/uL (4.70-6.10); White Blood Cell (WBC) Count 2.8 thou/uL (4.8-10.8)
[2019-09-18 06:31] LABS: Band 14 % (5-11); Eosinophils 2 % (0-10); Lymphocytes 30 % (21-51); MDiff Complete? YES; Metamyelocyte 1 % (0-0); Monocytes 12 % (0-10); Myelocyte 3 % (0-0); Neutrophil 37 % (42-75); Platelet Morphology Comment Appears Decreased; Reactive Lymphocytes 1 % (0-10)
[2019-09-18] MEDS: Gabapentin 300 MG CAP PO SCH ×3 (08:17→21:27)
[2019-09-18] MEDS: Polyethylene Glycol 3350 17 GM Packet PO SCH (08:17)
[2019-09-18] MEDS: predniSONE 20 MG TAB PO SCH (08:17)
[2019-09-18] MEDS: Scopolamine 1.5 mg/72 hour Patch TD SCH (08:17)
[2019-09-18] MEDS: Silver Sulfadiazine 1% Cream 50 GM JAR TOP SCH ×2 (08:29→21:28)
[2019-09-18] MEDS ORDERED: Morphine 2 MG/ML SYRINGE SLOW IVP PRN (08:31)
[2019-09-18] MEDS ORDERED: Morphine 4 MG/ML VIAL SLOW IVP PRN (08:31)
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
[2019-09-18] MEDS: Morphine 4 MG/ML VIAL SLOW IVP PRN ×2 (18:08→23:35)
[2019-09-18] MEDS: Enoxaparin Sodium 40 MG/0.4 ML SYRINGE SC SCH (21:28)
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
[2019-09-19] MEDS: Acetaminophen 325 MG TAB PO SCH ×2 (03:46→08:14)
[2019-09-19] MEDS: HYDROcodone/Acetaminophen 7.5/325 mg Tablet PO PRN ×4 (03:47→20:49)
[2019-09-19 07:35] LABS: Band 13 % (5-11); Eosinophils 4 % (0-10); Lymphocytes 33 % (21-51); MDiff Complete? YES; Mean Corpuscular HGB CONC 34.6 g/dL (32.0-36.0); Mean Corpuscular Hemoglobin 31.1 pg (27.0-31.0); Mean Corpuscular Volume 89.9 fL (78.0-98.0); Mean Platelet Volume 9.7 fL (7.4-10.4); Monocytes 10 % (0-10); Myelocyte 11 % (0-0); Neutrophil 29 % (42-75); Nucleated RBC 1 % (0); Platelet Count 53 thou/uL (130-400); Platelet Morphology Comment Appears Decreased; RBC Distribution Width 13.4 % (11.5-14.5); Red Blood Cell (RBC) Count 2.89 mill/uL (4.70-6.10); White Blood Cell (WBC) Count 2.7 thou/uL (4.8-10.8)
[2019-09-19] MEDS: predniSONE 20 MG TAB PO SCH (08:13)
[2019-09-19] MEDS: Polyethylene Glycol 3350 17 GM Packet PO SCH (08:14)
[2019-09-19] MEDS: Gabapentin 300 MG CAP PO SCH ×2 (08:14→20:57)
[2019-09-19] MEDS: Silver Sulfadiazine 1% Cream 50 GM JAR TOP SCH ×2 (08:19→20:59)
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
[2019-09-19] MEDS: Cyclobenzaprine 10 MG TAB PO PRN (18:31)
[2019-09-19] MEDS: Enoxaparin Sodium 40 MG/0.4 ML SYRINGE SC SCH (20:58)
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
[2019-09-20] MEDS: HYDROcodone/Acetaminophen 7.5/325 mg Tablet PO PRN ×3 (03:29→18:58)
[2019-09-20] MEDS: predniSONE 20 MG TAB PO SCH (08:22)
[2019-09-20] MEDS: Silver Sulfadiazine 1% Cream 50 GM JAR TOP SCH (08:22)
[2019-09-20] MEDS: Polyethylene Glycol 3350 17 GM Packet PO SCH (08:22)
[2019-09-20] MEDS: Gabapentin 300 MG CAP PO SCH (08:22)
[2019-09-20] MEDS ORDERED: Morphine 4 MG/ML VIAL SLOW IVP SCH (11:15)
[2019-09-20 15:36] VITALS: BP 121/74; TEMP 98.1
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
--- NOTE | 2019-09-22 05:32 | PQF ---
[employer] Job Titles Crystal [employer] PATRICIA Guerra CHRISTOPHER E MD [id number] [place] [id number] CLINICAL DOCUMENTATION CLARIFICATION FORM: POST DISCHARGE Addendum to original discharge summary date: ____ Late entry note date: __ DATE: 09/22/2019 ATTN: ASHLEY CHAVEZ MD Please exercise your independent, professional judgment in responding to the clarification form. Clinical indicators are provided on the bottom of this form for your review Please check appropriate box(s): [ x ] Excisional Debridement: [ ] Excised [ ] Cut away [ ] Other: Depth / layer: (deepest layer of debridement): [ ] Skin[ ] SubQ Tissue [ ] Fascia [ x ] Muscle [ ] Tendon [ ] Bone Appearance of wound: (e.g., down to fresh bleeding tissue, etc.)___ Margins: (please specify): / x x Instruments used: [ ] Scissors [ ] Scalpel [ ] Curette [ ] Soft tissue clipper [ ] Other: [ ] Non-excisional Debridement: (Removal by flushing, brushing, chemical, or washing) Depth / layer: (deepest layer of debridement): [ ] Skin[ ] Subcutaneous [ ] Fascia [ ] Muscle [ ] Tendon [ ] Bone [ ] Other procedure diagnosis [ ] Unable to determine For continuity of documentation, please document condition throughout progress notes and discharge summary. Thank You. CLINICAL INDICATORS - SIGNS / SYMPTOMS / LABS he had extensive wound along posterior aspect of the knee transversely across the popliteal fossa - Documented in OP report We debrided subcutaneous tissue, fascia, Debrided down to the bony level - Documented in OP report There was muscle damaged as well - Documented in OP report We then Irrigated with approximately 8 L of pulse lavage using irrigant - Documented in OP report At this point we performed a final excision of debridement - Documented in OP report RISK FACTORS Open left grade2 tibia and fibular open fracture with extensive soft tissue wounds popliteal fossa - Documented in OP report TREATMENTS: We close the wound loosely with 3-0 and 2-0 nylon suture - Documented in OP report (This form is maintained as a part of the permanent medical record) 2014 [employer]. All Rights Reserved [email or web address] [not provided] MTDD
== END 2019-09-20 19:15 | disposition home or self-care (01) | DRG 493 ==
LOC: ERS 16:28 → SDC/OP 18:14 → SURG A 22:20
PROVIDERS: ADMIT Surgery; ATTEND Surgery
PROC: 0KBT0ZZ Excision of Left Lower Leg Muscle, Open Approach (ICD-10-PCS; principal; 2019-09-14)
PROC: 0QSK35Z Reposition Left Fibula with External Fixation Device, Percutaneous Approach (ICD-10-PCS; 2019-09-14)
PROC: 0QSH35Z Reposition Left Tibia with External Fixation Device, Percutaneous Approach (ICD-10-PCS; 2019-09-14)
PROC: 0QPHX5Z Removal of External Fixation Device from Left Tibia, External Approach (ICD-10-PCS; 2019-09-17)
PROC: 0QSH06Z Reposition Left Tibia with Intramedullary Internal Fixation Device, Open Approach (ICD-10-PCS; 2019-09-17)
DX: S82.252B Displaced comminuted fracture of shaft of left tibia, initial encounter for open fracture type I or II (principal); E87.2 Acidosis; D69.3 Immune thrombocytopenic purpura; D62 Acute posthemorrhagic anemia; T79.A22A Traumatic compartment syndrome of left lower extremity, initial encounter; S82.832B Other fracture of upper and lower end of left fibula, initial encounter for open fracture type I or II; Z79.899 Other long term (current) drug therapy; Z90.49 Acquired absence of other specified parts of digestive tract; I12.9 Hypertensive chronic kidney disease with stage 1 through stage 4 chronic kidney disease, or unspecified chronic kidney disease; N18.2 Chronic kidney disease, stage 2 (mild); V29.9XXA Motorcycle rider (driver) (passenger) injured in unspecified traffic accident, initial encounter; R73.9 Hyperglycemia, unspecified; T38.0X5A Adverse effect of glucocorticoids and synthetic analogues, initial encounter
CPT/HCPCS: 29505; 36415; 36430; 51702; 70450; 71045; 71260; 72125; 74177; 75635; 76000; 80048; 80053; 80306; 80307; 81003; 81015; 82550; 83036; 83605; 83690; 83735; 84100; 85025; 85610; 85730; 86850; 86860; 86870; 86880; 86900; 86901; 86905; 86922; 90471; 90686; 90715; 93005; 93010; 96374; 96375; C1713; C1769; G0008; G0390; J0131; J0690; J1100; J1170; J1650; J1720; J2001; J2270; J2405; J2704; J3010; J7512; P9016; P9045; P9047; Q9967; S0028

== ENCOUNTER 2019-11-18 08:39 | Day surgery (SDC) | payer OTHER ==
[~2019-11-18 08:39] MED LIST changes: +Acetaminophen 500 MG TAB PO SCH; -Dexamethasone 20 MG/5 ML VIAL ONE; -Iopamidol-370 76% 500 ML 1 ML ONE; -Lidocaine 1% PF 5 ML VIAL ONE; -Ondansetron PF 4 MG/2 ML Vial ONE; -PHENYLEPHRINE-NS 100 MCG/ML 10 ML SYRINGE ONE; -PROPOFOL 200 MG/20 ML VIAL ONE; +RITUXIMAB IVPB SCH; +Rituximab 100 MG in Sodium Chloride 0.9% 100 ML IVPB SCH; +Rituximab 500 MG, Rituximab 200 MG in Sodium Chloride 0.9% 500 ML IVPB SCH; +SODIUM CHLORIDE 0.9% IVPB SCH; -Succinylcholine Chloride 20 MG/ML 10 ml SYRINGE FS ONE; +diphenhydrAMINE 25 MG in Sodium Chloride 0.9% 50 ML IVPB SCH
[2019-11-18 15:26] VITALS: TEMP 98.5
[2019-11-18 15:44] VITALS: BP 122/59
== END 2019-11-18 15:46 | disposition home or self-care (01) ==
LOC: ONC/OP 08:39
PROVIDERS: ATTEND Internal Medicine Hematology & Oncology
DX: D69.3 Immune thrombocytopenic purpura (principal); D69.49 Other primary thrombocytopenia
CPT/HCPCS: 96375; 96413; 96415; J1200

== ENCOUNTER 2019-12-03 10:17 | Day surgery (SDC) | payer OTHER ==
[2019-12-03] MEDS ORDERED: diphenhydrAMINE 25 MG in Sodium Chloride 0.9% 50 ML IVPB SCH (10:45)
[2019-12-03] MEDS ORDERED: Acetaminophen 500 MG TAB PO SCH (10:45)
[2019-12-03] MEDS ORDERED: Rituximab 500 MG, Rituximab 200 MG in Sodium Chloride 0.9% 500 ML IVPB SCH (11:00)
[2019-12-03] MEDS ORDERED: Rituximab 100 MG in Sodium Chloride 0.9% 100 ML IVPB SCH (11:00)
[2019-12-03 16:54] VITALS: TEMP 98.5
[2019-12-03 16:57] VITALS: BP 137/81
== END 2019-12-03 16:56 | disposition home or self-care (01) ==
LOC: ONC/OP 10:17
PROVIDERS: ATTEND Internal Medicine Hematology & Oncology
DX: D69.49 Other primary thrombocytopenia (principal); D69.3 Immune thrombocytopenic purpura
CPT/HCPCS: 96375; 96413; 96415; J1200

== ENCOUNTER 2019-12-15 10:48 | Inpatient (IN) | payer OTHER ==
[2019-12-13 11:13] VITALS: BMI 36.3
[~2019-12-15 10:48] MED LIST changes: -Acetaminophen 500 MG TAB PO SCH; +Dexamethasone 20 MG/5 ML VIAL ONE; +Esmolol 100 MG/10 ML VIAL ONE; +Glycopyrrolate 0.2 MG/ML 5 ML SYRINGE ONE; +Lidocaine 1% PF 5 ML VIAL ONE; +Ondansetron PF 4 MG/2 ML Vial ONE; +PROPOFOL 200 MG/20 ML VIAL ONE; -RITUXIMAB IVPB SCH; -Rituximab 100 MG in Sodium Chloride 0.9% 100 ML IVPB SCH; -Rituximab 500 MG, Rituximab 200 MG in Sodium Chloride 0.9% 500 ML IVPB SCH; +Rocuronium Bromide 10 MG/ML (10ML VIAL) ONE; -SODIUM CHLORIDE 0.9% IVPB SCH; -diphenhydrAMINE 25 MG in Sodium Chloride 0.9% 50 ML IVPB SCH; +diphenhydrAMINE 50 MG/ML VIAL ONE
[2019-12-15] MEDS ORDERED: Fentanyl 100 MCG/2 ML VIAL ONE ×3 (12:59→15:37)
[2019-12-15] MEDS ORDERED: Midazolam HCl 2 mg/2 ml Vial ONE (13:00)
[2019-12-15] MEDS ORDERED: HYDROmorphone 2 MG/ML VIAL ONE (13:39)
[2019-12-15] MEDS ORDERED: HYDROcodone/Acetaminophen 10/325 mg Tablet PO PRN ×2 (14:40)
[2019-12-15] MEDS ORDERED: Ondansetron PF 4 MG/2 ML Vial IV PRN (14:40)
[2019-12-15] MEDS ORDERED: Morphine 2 MG/ML SYRINGE SLOW IVP PRN (14:40)
[2019-12-15] MEDS ORDERED: PHARMACY TO RENALLY ADJUST ABX FS SCH (14:45)
[2019-12-15] MEDS ORDERED: Meperidine HCl/PF 25 MG/ML VIAL SLOW IVP PRN (15:13)
[2019-12-15] MEDS ORDERED: HYDROmorphone 2 MG/ML VIAL SLOW IVP PRN (15:13)
[2019-12-15] MEDS ORDERED: Promethazine HCl 25 MG/ML VIAL SLOW IVP PRN (15:13)
[2019-12-15] MEDS ORDERED: Promethazine HCl 25 MG/ML VIAL IM PRN ×2 (15:13→19:42)
[2019-12-15] MEDS ORDERED: Ondansetron HCl/PF 4 MG/2 ML Vial IVP PRN (15:13)
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
--- NOTE | 2019-12-15 18:42 | RAD ---
LEFT TIBIA AND FIBULA: 12/15/19 Two fluoroscopic images are presented from OR. INDICATION: Intraoperative imaging during bone graft left tibia. FINDINGS/IMPRESSION: These images show an intramedullary china with comminuted fracture mid shaft. POS: AUBREE
[2019-12-15] MEDS ORDERED: traMADol HCl 50 MG TAB PO PRN (19:23)
[2019-12-15] MEDS ORDERED: fentaNYL Citrate/PF 2,000 MCG in Sodium Chloride 0.9% 60 ML IV PRN (19:42)
[2019-12-15] MEDS ORDERED: diphenhydrAMINE 50 MG/ML VIAL IM PRN (19:42)
[2019-12-15] MEDS ORDERED: diphenhydrAMINE 50 MG/ML VIAL IVP PRN (19:42)
[2019-12-15] MEDS ORDERED: Naloxone HCl 0.4 mg/ml Vial IV PRN (19:42)
[2019-12-15] MEDS ORDERED: Zolpidem Tartrate 5 MG TAB PO PRN (19:42)
[2019-12-15] MEDS ORDERED: Ondansetron PF 4 MG/2 ML Vial IVP PRN (19:42)
[2019-12-15] MEDS ORDERED: Communication Order-Pharmacy FS SCH (19:45)
[2019-12-15] MEDS: Aspirin 81 mg Enteric Coated Tablet PO SCH (20:29)
[2019-12-15] MEDS: CEFAZOLIN 2 GM in Premix Bag 1 BAG IVPB SCH (20:29)
[2019-12-15] MEDS: diphenhydrAMINE 25 MG CAP PO PRN (21:51)
[2019-12-15] MEDS: Ketorolac Tromethamine 30 MG/ML VIAL IVP SCH (23:24)
[2019-12-16] MEDS: CEFAZOLIN 2 GM in Premix Bag 1 BAG IVPB SCH ×3 (03:50→20:27)
[2019-12-16] MEDS: Ketorolac Tromethamine 30 MG/ML VIAL IVP SCH ×4 (05:01→23:35)
[2019-12-16 05:35] LABS: #Lymphocytes 0.7 thou/uL (1.20-3.40); #Neutrophils 7.3 thou/uL (1.40-6.50); %Basophils 0.3 % (0.0-1.0); %Eosinophils 0.2 % (0.0-10.0); %Lymphocytes 7.6 % (21.0-51.0); %Neutrophils 80.9 % (42.0-75.0); Hemoglobin 12.1 g/dL (14.0-18.0); Mean Corpuscular Hemoglobin 28.8 pg (27.0-31.0); Mean Corpuscular Volume 82.3 fL (78.0-98.0); Mean Platelet Volume 10.3 fL (7.4-10.4); Platelet Count 172 thou/uL (130-400); RBC Distribution Width 13.5 % (11.5-14.5); Red Blood Cell (RBC) Count 4.18 mill/uL (4.70-6.10); White Blood Cell (WBC) Count 9.1 thou/uL (4.8-10.8)
[2019-12-16] MEDS ORDERED: ALPRAZolam 0.5 MG TAB PO PRN ×2 (07:58→08:03)
[2019-12-16] MEDS: Aspirin 81 mg Enteric Coated Tablet PO SCH ×2 (10:28→20:27)
[2019-12-16] MEDS: diphenhydrAMINE 25 MG CAP PO PRN (12:11)
[2019-12-16] MEDS ORDERED: HYDROcodone/Acetaminophen 10/325 mg Tablet PO PRN (13:14)
[2019-12-16] MEDS ORDERED: traMADol HCl 50 MG TAB PO PRN (13:15)
[2019-12-16] MEDS ORDERED: traMADol HCl 50 MG TAB PO SCH (13:15)
[2019-12-16] MEDS ORDERED: diphenhydrAMINE 50 MG/ML VIAL IVP SCH (13:15)
[2019-12-16] MEDS ORDERED: Hydrocortisone 1% Cream 30 GM TUBE TOP PRN (13:16)
[2019-12-16] MEDS ORDERED: Morphine 4 MG/ML VIAL SLOW IVP PRN (13:18)
[2019-12-16] MEDS: Cyclobenzaprine 10 MG TAB PO PRN ×2 (13:28→20:27)
[2019-12-16] MEDS ORDERED: Acetaminophen 500 MG TAB PO SCH (13:30)
[2019-12-16] MEDS: HYDROcodone/Acetaminophen 10/325 mg Tablet PO PRN ×2 (15:12→20:26)
[2019-12-16] MEDS ORDERED: Acetaminophen 325 MG TAB PO PRN (17:30)
[2019-12-16] MEDS: diphenhydrAMINE 50 MG/ML VIAL IVP PRN (20:27)
[2019-12-16] MEDS: traMADol HCl 50 MG TAB PO PRN (23:50)
[2019-12-17] MEDS: HYDROcodone/Acetaminophen 10/325 mg Tablet PO PRN ×2 (02:31→07:37)
[2019-12-17] MEDS: traMADol HCl 50 MG TAB PO PRN (04:56)
[2019-12-17] MEDS: Ketorolac Tromethamine 30 MG/ML VIAL IVP SCH (04:56)
[2019-12-17] MEDS: CEFAZOLIN 2 GM in Premix Bag 1 BAG IVPB SCH (04:56)
[2019-12-17] MEDS: diphenhydrAMINE 50 MG/ML VIAL IVP PRN (04:57)
[2019-12-17 07:42] VITALS: BP 115/77; TEMP 98.7
[2019-12-17] MEDS: Aspirin 81 mg Enteric Coated Tablet PO SCH (08:40)
[2019-12-17] MEDS: diphenhydrAMINE 25 MG CAP PO PRN (08:40)
[2019-12-17] MEDS: Cyclobenzaprine 10 MG TAB PO PRN (08:42)
--- NOTE | 2019-12-20 11:28 | DIS ---
DATE OF ADMISSION: 12/15/2019 DATE OF DISCHARGE: 12/17/2019 This is Shay Foster PA-C dictating a report for Ignacio Graves MD. PREOPERATIVE DIAGNOSIS: Left tibial nonunion. POSTOPERATIVE DIAGNOSIS: Left tibial nonunion. PROCEDURES PERFORMED: 1. The patient underwent a left femur bone graft harvest. 2. Left tibial nonunion bone grafting. HOSPITAL COURSE: Hospital stay unremarkable. He had some pain on first day out. On second day, he was doing much better and felt that he could go home. He had no hospital complications whatsoever. DISCHARGE CONDITION: Good/stable. DISPOSITION: Home with family. FOLLOWUP: Follow up would be in 10 to 14 days or sooner if there are problems and/or concerns. DISCHARGE MEDICATIONS: Given with usage instructions. Job ID: [id number]
== END 2019-12-17 10:55 | disposition home or self-care (01) | DRG 494 ==
LOC: SDC 10:48 → SJJU 14:45
PROVIDERS: ADMIT Orthopaedic Surgery; ATTEND Orthopaedic Surgery
PROC: 0QUH07Z Supplement Left Tibia with Autologous Tissue Substitute, Open Approach (ICD-10-PCS; principal; 2019-12-15)
PROC: 0QB70ZZ Excision of Left Upper Femur, Open Approach (ICD-10-PCS; 2019-12-15)
DX: S82.202 Unspecified fracture of shaft of left tibia (principal)
CPT/HCPCS: 36415; 76000; 85025; 87070; 87205; 94640; C1769; J0690; J1100; J1170; J1200; J1885; J2001; J2250; J2270; J2405; J2704; J3010; J3490; J7620; Q0163

== ENCOUNTER 2019-12-21 20:55 | Emergency (ER) | payer OTHER ==
[2019-12-21] MEDS ORDERED: Vancomycin 1 GM/200 ML BAG ONE (21:25)
[2019-12-21] MEDS ORDERED: Piperacillin/Tazobactam 4.5 GM VIAL ONE (21:25)
[2019-12-21 21:36] LABS: #Lymphocytes 0.4 thou/uL (1.20-3.40); #Monocytes 0.6 thou/uL (0.11-0.59); #Neutrophils 5.8 thou/uL (1.40-6.50); %Basophils 0.1 % (0.0-1.0); %Eosinophils 0.2 % (0.0-10.0); %Lymphocytes 5.4 % (21.0-51.0); %Monocytes 8.3 % (0.0-10.0); %Neutrophils 86.1 % (42.0-75.0); Hemoglobin 10.7 g/dL (14.0-18.0); Mean Corpuscular HGB CONC 34.5 g/dL (32.0-36.0); Mean Corpuscular Hemoglobin 28.2 pg (27.0-31.0); Mean Corpuscular Volume 81.8 fL (78.0-98.0); Mean Platelet Volume 8.4 fL (7.4-10.4); Platelet Count 212 thou/uL (130-400); RBC Distribution Width 13.1 % (11.5-14.5); Red Blood Cell (RBC) Count 3.81 mill/uL (4.70-6.10); White Blood Cell (WBC) Count 6.7 thou/uL (4.8-10.8)
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
[2019-12-21 22:06] LABS: ALT (SGPT) 24 U/L (8-55); AST (SGOT) 16 U/L (5-34); Albumin 4.3 g/dL (3.5-5.0); Alkaline Phosphatase 74 U/L (40-110); Anion Gap 12 mmol/L (10-20); BUN (Urea Nitrogen) 10 mg/dL (8.9-20.6); Bilirubin, Total 0.9 mg/dL (0.2-1.2); CK (CPK) 67 U/L (30-200); CRP (Inflammatory) 4.38 mg/dL (= or < 0.5); Calc. Creatinine Clearance 0 mL/min (70-130); Calcium 9.9 mg/dL (7.8-10.44); Carbon Dioxide 25 mmol/L (22-29); Chloride 105 mmol/L (98-107); Estimated GFR-MDRD 86; Globulin 2.8 g/dL (2.4-3.5); Glucose 168 mg/dL (70-105); Potassium 3.8 mmol/L (3.5-5.1); Protein, Total 7.1 g/dL (6.0-8.3); Sodium 138 mmol/L (136-145)
== END 2019-12-21 23:21 | disposition home or self-care (01) ==
LOC: ERS 20:55
DX: B34.9 Viral infection, unspecified (principal); R11.0 Nausea
CPT/HCPCS: 36415; 80053; 82550; 83605; 85025; 86140; 87040; 96365; 96367; J2543; J3370

== ENCOUNTER 2019-12-31 09:40 | Day surgery (SDC) | payer OTHER ==
[~2019-12-31 09:40] MED LIST changes: +Acetaminophen 500 MG TAB PO SCH; -Dexamethasone 20 MG/5 ML VIAL ONE; -Esmolol 100 MG/10 ML VIAL ONE; -Glycopyrrolate 0.2 MG/ML 5 ML SYRINGE ONE; -Lidocaine 1% PF 5 ML VIAL ONE; -Ondansetron PF 4 MG/2 ML Vial ONE; -PROPOFOL 200 MG/20 ML VIAL ONE; +Rituximab 500 MG, Rituximab 300 MG in Sodium Chloride 0.9% 500 ML IVPB SCH; -Rocuronium Bromide 10 MG/ML (10ML VIAL) ONE; +diphenhydrAMINE 25 MG in Sodium Chloride 0.9% 50 ML IVPB SCH; -diphenhydrAMINE 50 MG/ML VIAL ONE
[2019-12-31] MEDS ORDERED: Sodium Chloride 0.9% 20 ML ONE (09:51)
[2019-12-31 10:18] VITALS: BP 130/72; TEMP 98.7
[2019-12-31 10:23] LABS: #Eosinphils 0.1 thou/uL (0.0-0.7); #Monocytes 0.5 thou/uL (0.11-0.59); #Neutrophils 3.4 thou/uL (1.40-6.50); %Basophils 0.1 % (0.0-1.0); %Eosinophils 1.7 % (0.0-10.0); %Lymphocytes 20.3 % (21.0-51.0); %Neutrophils 68.9 % (42.0-75.0); Hemoglobin 11.3 g/dL (14.0-18.0); Mean Corpuscular HGB CONC 33.2 g/dL (32.0-36.0); Mean Corpuscular Hemoglobin 27.3 pg (27.0-31.0); Mean Corpuscular Volume 82.2 fL (78.0-98.0); Mean Platelet Volume 8.5 fL (7.4-10.4); Platelet Count 228 thou/uL (130-400); RBC Distribution Width 13.3 % (11.5-14.5); Red Blood Cell (RBC) Count 4.13 mill/uL (4.70-6.10)
== END 2019-12-31 14:25 | disposition home or self-care (01) ==
LOC: ONC/OP 09:40
PROVIDERS: ATTEND Internal Medicine Hematology & Oncology
DX: D69.49 Other primary thrombocytopenia (principal); D69.3 Immune thrombocytopenic purpura
CPT/HCPCS: 85025; 96375; 96413; 96415; J1200

== ENCOUNTER 2020-01-11 12:04 | Day surgery (SDC) | payer OTHER ==
[2020-01-11] MEDS ORDERED: Sodium Chloride 0.9% 20 ML ONE (12:12)
[2020-01-11 13:10] VITALS: BP 157/71; TEMP 98.7
== END 2020-01-11 16:21 | disposition home or self-care (01) ==
LOC: ONC/OP 12:04
PROVIDERS: ATTEND Internal Medicine Hematology & Oncology
DX: D69.3 Immune thrombocytopenic purpura (principal); D69.49 Other primary thrombocytopenia; Z87.891 Personal history of nicotine dependence
CPT/HCPCS: 96375; 96413; 96415; J1200; J1447

== ENCOUNTER 2020-02-01 15:44 | Day surgery (SDC) | payer OTHER ==
[2020-02-01 17:22] VITALS: BP 138/68; TEMP 98.6
== END 2020-02-01 17:23 | disposition home or self-care (01) ==
LOC: ONC/OP 15:44
PROVIDERS: ATTEND Internal Medicine Hematology & Oncology
DX: D69.6 Thrombocytopenia, unspecified (principal); Z87.891 Personal history of nicotine dependence
CPT/HCPCS: 96372; J1447

== ENCOUNTER 2020-02-12 13:57 | Emergency (ER) | payer OTHER, SELFPAY ==
--- NOTE | 2020-02-12 15:00 | ULT ---
EXAM: Left lower extremity venous Doppler HISTORY: Left lower extremity swelling/edema. FINDINGS: Grayscale, color-flow, Doppler evaluation, spectral analysis of the left lower extremity venous struc tures is performed with 2-D imaging. The left common femoral, superficial femoral, popliteal, posterior tibial, proximal greater saphenous and profunda femoral veins are imaged. There is normal luminal compressibility, flow, and augmentation in the visualized deep venous structu res of the left lower extremity. IMPRESSION: No evidence of a deep vein thrombosis in the visualized deep venous structures left lower extremity.
== END 2020-02-12 15:17 | disposition home or self-care (01) ==
LOC: ERS 13:57
DX: M79.89 Other specified soft tissue disorders (principal)

== ENCOUNTER 2021-01-28 14:26 | Emergency (ER) | payer OTHER, SELFPAY ==
[2021-01-28] MEDS ORDERED: Ondansetron PF 4 MG/2 ML Vial ONE (14:59)
[2021-01-28] MEDS ORDERED: Morphine 4 MG/ML VIAL ONE (15:13)
[2021-01-28 15:22] LABS: #Lymphocytes 0.3 thou/uL (1.20-3.40); #Monocytes 0.3 thou/uL (0.11-0.59); #Neutrophils 5.1 thou/uL (1.40-6.50); %Basophils 0.2 % (0.0-1.0); %Eosinophils 0.5 % (0.0-10.0); %Monocytes 5.7 % (0.0-10.0); %Neutrophils 88.6 % (42.0-75.0); Hemoglobin 15.4 g/dL (14.0-18.0); Mean Corpuscular HGB CONC 34.2 g/dL (32.0-36.0); Mean Corpuscular Hemoglobin 29.7 pg (27.0-31.0); Mean Corpuscular Volume 86.8 fL (78.0-98.0); Mean Platelet Volume 10.3 fL (7.4-10.4); Platelet Count 91 thou/uL (130-400); RBC Distribution Width 12.3 % (11.5-14.5); Red Blood Cell (RBC) Count 5.18 mill/uL (4.70-6.10); White Blood Cell (WBC) Count 5.7 thou/uL (4.8-10.8)
[2021-01-28 15:36] LABS: Platelet Morphology Comment Appears Decreased; RBC Morphology Normal
[2021-01-28 15:51] LABS: ALT (SGPT) 25 U/L (8-55); AST (SGOT) 15 U/L (5-34); Albumin 4.2 g/dL (3.5-5.0); Alkaline Phosphatase 107 U/L (40-110); Anion Gap 10 mmol/L (10-20); BUN (Urea Nitrogen) 17 mg/dL (8.9-20.6); Bilirubin, Total 1.1 mg/dL (0.2-1.2); Calc. Creatinine Clearance 0 mL/min (70-130); Calcium 8.9 mg/dL (7.8-10.44); Carbon Dioxide 27 mmol/L (22-29); Chloride 106 mmol/L (98-107); Globulin 2.6 g/dL (2.4-3.5); Glucose 106 mg/dL (70-105); Lipase 21 U/L (8-78); Potassium 4.4 mmol/L (3.5-5.1); Protein, Total 6.8 g/dL (6.0-8.3); Sodium 139 mmol/L (136-145)
[2021-01-28 22:30] LABS: SARS-CoV-2 PCR by NAA Not Detected (NotDetected)
== END 2021-01-28 17:43 | disposition home or self-care (01) ==
LOC: ERS 14:26
DX: R11.2 Nausea with vomiting, unspecified (principal); R19.7 Diarrhea, unspecified; F17.290 Nicotine dependence, other tobacco product, uncomplicated
CPT/HCPCS: 36415; 80053; 83690; 85025; 87635; 96374; 96375; J2270; J2405; U0003; U0005

== ENCOUNTER 2021-06-22 13:57 | Emergency (ER) | payer SELFPAY ==
[2021-06-22] MEDS ORDERED: Ondansetron ODT 4 MG TAB ONE (14:22)
[2021-06-22 14:46] LABS: #Eosinphils 0.2 thou/uL (0.0-0.7); #Lymphocytes 0.6 thou/uL (1.20-3.40); #Monocytes 0.6 thou/uL (0.11-0.59); %Eosinophils 1.4 % (0.0-10.0); %Lymphocytes 5.4 % (21.0-51.0); %Neutrophils 88.2 % (42.0-75.0); Hemoglobin 16.2 g/dL (14.0-18.0); Mean Corpuscular HGB CONC 33.8 g/dL (32.0-36.0); Mean Corpuscular Hemoglobin 29.9 pg (27.0-31.0); Mean Corpuscular Volume 88.3 fL (78.0-98.0); Mean Platelet Volume 10.7 fL (7.4-10.4); Platelet Count 97 thou/uL (130-400); RBC Distribution Width 12.5 % (11.5-14.5); Red Blood Cell (RBC) Count 5.42 mill/uL (4.70-6.10); White Blood Cell (WBC) Count 11.3 thou/uL (4.8-10.8)
[2021-06-22 15:16] LABS: ALT (SGPT) 22 U/L (8-55); AST (SGOT) 14 U/L (5-34); Albumin 4.6 g/dL (3.5-5.0); Alkaline Phosphatase 111 U/L (40-110); Anion Gap 13 mmol/L (10-20); BUN (Urea Nitrogen) 17 mg/dL (8.9-20.6); Bilirubin, Total 1.3 mg/dL (0.2-1.2); Calc. Creatinine Clearance 0 mL/min (70-130); Calcium 9.7 mg/dL (7.8-10.44); Carbon Dioxide 28 mmol/L (22-29); Chloride 102 mmol/L (98-107); Glucose 119 mg/dL (70-105); Protein, Total 7.6 g/dL (6.0-8.3); Sodium 139 mmol/L (136-145)
[2021-06-22 15:20] LABS: SARS-CoV-2 NAA Rapid Test Not Detected (NotDetected)
== END 2021-06-22 16:25 | disposition home or self-care (01) ==
LOC: ERS 13:57
DX: B34.9 Viral infection, unspecified (principal); R06.00 Dyspnea, unspecified; R11.10 Vomiting, unspecified; F17.290 Nicotine dependence, other tobacco product, uncomplicated; Z20.822 Contact with and (suspected) exposure to COVID-19
CPT/HCPCS: 0240U; 36415; 71045; 80053; 85025; 93005; Q0162

== ENCOUNTER 2025-05-17 19:09 | Emergency (ER) | payer SELFPAY | END 2025-05-17 20:22 | LOC: ERS 19:09 | DX: Z53.21 Procedure and treatment not carried out due to patient leaving prior to being seen by health care provider (principal) ==